=== PATIENT | female | born 1975 | race Two or more races ===

== ENCOUNTER → 2021-02-26 10:08 | Outpatient (CLI) | payer OTHER | END | disposition home or self-care (01) | LOC: PPH VACUNA 10:08 | DX: Z23 Encounter for immunization (principal) ==

== ENCOUNTER → 2023-09-16 10:30 | Outpatient (CLI) | payer OTHER ==
[2023-09-16 11:03] LABS: HEMATOCRIT 40.4 % (36.0-45.00); HEMOGLOBIN 13.3 g/dL (12.0-15.00); MEAN CELL VOLUME 89.1 fL (80.00-100.00); MEAN CORPUSCULAR HEMOGLOBIN 29.3 pg (27.00-32.0); MEAN CORPUSCULAR HGB CONC 32.9 g/dl (32.0-36.0); PLATELET COUNT 320 K/uL (150-450); RED BLOOD COUNT 4.53 M/uL (4.00-6.00); RED CELL DISTRIBUTION WIDTH 14.5 % (11.5-14.5)
[2023-09-16 11:12] LABS: PH,URINE 6.5 (5.0-8.0); URINE APPEARANCE Clear; URINE BILIRRUBIN Negative (NEGATIVE); URINE COLOR Yellow; URINE GLUCOSE Negative (NEGATIVE); URINE LEUKOCYTE Small; URINE NITRATE Negative; URINE PROTEIN Negative (NEGATIVE); URINE UROBILINOGEN 0.2 E.U./dl
[2023-09-16 11:15] LABS: URINE EPITHELIAL CELLS 13.1 uL (0.0-38.8); URINE RBC 25.8 uL (0.0-20.8); URINE WBC 96.4 uL (0.0-23.2)
[2023-09-16 11:28] LABS: URINE BLOOD TRACE
[2023-09-16 11:54] LABS: ALBUMIN 3.3 gm/dL (3.4-5.0); BILIRUBIN TOTAL 0.73 mg/dL (0.3-1.2); CALCIUM 8.5 mg/dL (8.5-10.1); CHOL HDL RATIO 2.3 (0-5.0); CREATININE SERUM 0.77 mg/dL (0.55-1.02); GFR 80.35; GLOBULINA 3.9 G/DL (2.4-3.5); POTASSIUM 4.7 mEq/L (3.5-5.1); T4 FREE 0.91 NG/ML (0.76-1.46); TOTAL PROTEIN 7.2 gm/dL (6.4-8.2); TSH 0.713 uIU/mL (0.358-3.74)
== END | disposition home or self-care (01) ==
LOC: LAB 10:30
PROVIDERS: ATTEND Obstetrics & Gynecology
DX: I10 Essential (primary) hypertension (principal); E03.9 Hypothyroidism, unspecified; E78.00 Pure hypercholesterolemia, unspecified; N39.0 Urinary tract infection, site not specified; Z11.4 Encounter for screening for human immunodeficiency virus [HIV]; Z12.11 Encounter for screening for malignant neoplasm of colon; E55.9 Vitamin D deficiency, unspecified; Z21 Asymptomatic human immunodeficiency virus [HIV] infection status; R79.9 Abnormal finding of blood chemistry, unspecified; R79.89 Other specified abnormal findings of blood chemistry

== ENCOUNTER → 2023-10-09 | Outpatient (CLI) | payer OTHER | END | disposition home or self-care (01) | LOC: MAMO-SONO 14:31 | PROVIDERS: ATTEND Obstetrics & Gynecology | DX: N64.59 Other signs and symptoms in breast (principal); N64.9 Disorder of breast, unspecified; N63.0 Unspecified lump in unspecified breast; Z12.31 Encounter for screening mammogram for malignant neoplasm of breast ==

== ENCOUNTER 2024-07-15 14:23 | Emergency (ER) | payer OTHER ==
[~2024-07-15] VITALS: Ht 152.4 cm; Wt 64.4 kg
[2024-07-15] MEDS ORDERED: ORPHENADRINE CITRATE 30 MG/ML AMPUL ONE (16:57)
[2024-07-15] MEDS ORDERED: KETOROLAC TROMETHAMINE 60 MG VIAL IM ONE ×2 (16:58→17:00)
[2024-07-15] MEDS ORDERED: ORPHENADRINE CITRATE 30 MG/ML AMPUL IM ONE (17:00)
[2024-07-15] MEDS ORDERED: NORFLEX100MG PO (18:49)
[2024-07-15] MEDS ORDERED: KETO10TA2 PO (18:49)
== END 2024-07-15 18:52 | disposition home or self-care (01) ==
LOC: ER 14:23
DX: M62.838 Other muscle spasm (principal); Z91.013 Allergy to seafood

== ENCOUNTER 2024-11-15 14:17 | Emergency (ER) | payer OTHER ==
[~2024-11-15] VITALS: Ht 152.4 cm; Wt 68.0 kg
[~2024-11-15 14:17] MED LIST: KETO10TA2 PO; NORFLEX100MG PO
[2024-11-15 14:44] VITALS: BP 129/87; O2SAT 100
[2024-11-15 17:47] LABS: HEMATOCRIT 39.5 % (36.0-45.00); HEMOGLOBIN 13.2 g/dL (12.0-15.00); MEAN CELL VOLUME 89.9 fL (80.00-100.00); MEAN CORPUSCULAR HGB CONC 33.4 g/dl (32.0-36.0); PLATELET COUNT 319 K/uL (150-450); RED BLOOD COUNT 4.39 M/uL (4.00-6.00)
[2024-11-15 18:07] LABS: PARTIAL THROMBOPLASTIN TIME 27.4 SECONDS (22.0-34.0); PROTHROMBIN TIME 10.9 SECONDS (9.0-11.5)
[2024-11-15 18:10] LABS: CALCIUM 8.9 mg/dL (8.5-10.1); CREATININE SERUM 0.76 mg/dL (0.55-1.02); GFR 80.88; POTASSIUM 3.94 mEq/L (3.5-5.1)
== END 2024-11-15 18:49 | disposition home or self-care (01) ==
LOC: ER 14:20
PROVIDERS: General Practice
DX: D25.9 Leiomyoma of uterus, unspecified (principal); N93.9 Abnormal uterine and vaginal bleeding, unspecified; R10.2 Pelvic and perineal pain; Z91.013 Allergy to seafood

== ENCOUNTER → 2024-11-19 | Outpatient (CLI) | payer OTHER | END | disposition home or self-care (01) | LOC: MAMO-SONO 14:15 | PROVIDERS: ATTEND Obstetrics & Gynecology | DX: N64.59 Other signs and symptoms in breast (principal); N64.9 Disorder of breast, unspecified; N63.0 Unspecified lump in unspecified breast; Z12.31 Encounter for screening mammogram for malignant neoplasm of breast ==

== ENCOUNTER → 2024-12-11 10:01 | Outpatient (CLI) | payer OTHER ==
[2024-12-11 10:53] LABS: HEMATOCRIT 37.1 % (36.0-45.00); HEMOGLOBIN 12.4 g/dL (12.0-15.00); MEAN CELL VOLUME 89.6 fL (80.00-100.00); MEAN CORPUSCULAR HEMOGLOBIN 29.9 pg (27.00-32.0); MEAN CORPUSCULAR HGB CONC 33.4 g/dl (32.0-36.0); PLATELET COUNT 336 K/uL (150-450); RED BLOOD COUNT 4.14 M/uL (4.00-6.00)
[2024-12-11 11:16] LABS: PH,URINE 6.5 (5.0-8.0); URINE APPEARANCE Clear; URINE BILIRRUBIN Negative (NEGATIVE); URINE COLOR Yellow; URINE GLUCOSE Negative (NEGATIVE); URINE KETONE Negative (NEGATIVE); URINE LEUKOCYTE Negative; URINE NITRATE Negative; URINE PROTEIN Negative (NEGATIVE); URINE UROBILINOGEN 0.2 E.U./dl
[2024-12-11 11:49] LABS: URINE BACTERIA 141.9 uL (0.0-1933); URINE EPITHELIAL CELLS 13.1 uL (0.0-38.8); URINE RBC 15.4 uL (0.0-20.8); URINE WBC 2.5 uL (0.0-23.2)
[2024-12-11 11:51] LABS: URINE BLOOD TRACE
[2024-12-11 11:55] LABS: ALBUMIN 3.4 gm/dL (3.4-5.0); BILIRUBIN TOTAL 0.39 mg/dL (0.3-1.2); CALCIUM 9.4 mg/dL (8.5-10.1); CHOL HDL RATIO 2.5 (0-5.0); CREATININE SERUM 0.75 mg/dL (0.55-1.02); GFR 82.13; GLOBULINA 3.6 G/DL (2.4-3.5); POTASSIUM 5.05 mEq/L (3.5-5.1); T4 FREE 1.12 NG/ML (0.76-1.46); TSH 0.467 uIU/mL (0.358-3.74)
== END | disposition home or self-care (01) ==
LOC: LAB 10:01
PROVIDERS: ATTEND Obstetrics & Gynecology
DX: Z00.00 Encounter for general adult medical examination without abnormal findings (principal); I10 Essential (primary) hypertension; E03.9 Hypothyroidism, unspecified; E78.00 Pure hypercholesterolemia, unspecified; N39.0 Urinary tract infection, site not specified; Z12.11 Encounter for screening for malignant neoplasm of colon; E55.9 Vitamin D deficiency, unspecified; Z21 Asymptomatic human immunodeficiency virus [HIV] infection status; R79.9 Abnormal finding of blood chemistry, unspecified; R79.89 Other specified abnormal findings of blood chemistry; D64.9 Anemia, unspecified; E11.9 Type 2 diabetes mellitus without complications; N39.8 Other specified disorders of urinary system

== ENCOUNTER 2025-07-21 21:45 | Emergency (ER) | payer OTHER ==
[~2025-07-21] VITALS: Ht 152.4 cm; Wt 72.1 kg
== END 2025-07-21 22:40 | disposition home or self-care (01) ==
LOC: ER 21:45
DX: R00.2 Palpitations (principal); Z91.013 Allergy to seafood